=== PATIENT | female | born 1930 | race Caucasian/White ===

== ENCOUNTER 2018-06-03 09:51 | Emergency (ER) | payer MEDICARE, MEDICAID ==
[~2018-06-03] VITALS: Ht 157.5 cm; Wt 54.5 kg
[2018-06-03 10:00] VITALS: Ht 157.5 cm; Wt 54.5 kg
[2018-06-03] MEDS ORDERED: ZOCOR10 MG (10:01)
[2018-06-03] MEDS ORDERED: TIROSINT25 MCG (10:01)
[2018-06-03] MEDS ORDERED: MAXZIDE 75/501 TAB (10:01)
[2018-06-03 10:22] LABS: BASOPHILS 0.3 % (0-2); EOSINOPHILS 2.3 % (0-7); HEMATOCRIT 44.5 % (36.0-48.0); IMMATURE GRANULOCYTES 0.5 % (0-5); LYMPHOCYTES 18.7 % (15-50); MCH 31.7 pg (26.0-34.0); MCHC 33.7 g/dL (31.0-37.0); MCV 94.1 fL (80.0-100.0); MEAN PLATELET VOLUME 10.5 fL (7.4-10.4); MONOCYTES 12.9 % (2-11); NEUTROPHILS 65.3 % (40-80); PLATELET COUNT 169 10x3/uL (130-400); RBC 4.73 10x6/uL (4.00-5.40); RDW 13.3 % (11.5-14.5)
[2018-06-03 10:35] LABS: ALBUMIN 3.6 g/dL (3.4-5.0); ALKALINE PHOSPHATASE 63 U/L (46-116); ALT (SGPT) 12 U/L (10-68); BILIRUBIN - TOTAL 0.68 mg/dL (0.2-1.3); CALC OSMOLALITY 282 mosm/kg (275-300); CALCIUM 9.4 mg/dL (8.5-10.1); CARBON DIOXIDE 27.8 mmol/L (21.0-32.0); CHLORIDE - SERUM 102 mmol/L (98-107); CREATININE - SERUM 0.9 mg/dL (0.6-1.3); GLUCOSE 91 mg/dL (74-106); PROTEIN - SERUM 7.4 g/dL (6.4-8.2); SODIUM 140 mmol/L (136-145); UREA NITROGEN 24 mg/dL (7-18); eGFR NON AFRICAN AMERICAN 62 mL/min (90-120)
[2018-06-03 10:47] LABS: CKMB 0.9 U/L (0.0-3.6); CREATINE KINASE 59 UL (21-215); PRO BNP 432 pg/mL (0-450); TROPONIN-I < 0.017 ng/mL (0.000-0.060)
[2018-06-03 12:54] VITALS: BP 128/63
== END 2018-06-03 12:58 | disposition home or self-care (01) ==
LOC: D.ER 09:51
PROVIDERS: Family Medicine
DX: Z00.00 Encounter for general adult medical examination without abnormal findings (principal); I49.1 Atrial premature depolarization; I49.8 Other specified cardiac arrhythmias